=== PATIENT | female | born 1975 | race Two or more races ===

== ENCOUNTER → 2019-11-28 | Outpatient (CLI) | payer BC, OTHER ==
--- NOTE | 2019-11-28 17:44 | RAD ---
Examination: PELVIS W/TV History: Abnormal uterine bleeding Comparison/Correlation: None Findings: Transabdominal and transvaginal pelvic ultrasound exam was performed. Transvaginal technique was utilized to better assess the adnexal structures. Uterus measures 9.2 cm x 6.5 cm 4.6 cm. Myometrium is heterogeneously hypoechoic. Multiple fibroids are present involving the myometrium with the largest measuring up to 2.9 cm diameter at the posterior uterine body. Endometrial thickness measures up to 0.95 cm. Nabothian cysts involve the uterine cervix. Right ovary is not identified. Left ovary measures up to 2.8 cm x 2.2 cm x 1.2 cm. No pelvic free fluid. Impression: Fibroid uterus. Electronically signed by: Sam Maddox MD (11/28/2019 5:41 PM) [facility]
== END | disposition home or self-care (01) ==
LOC: US 10:05
PROVIDERS: ATTEND Obstetrics & Gynecology
DX: N88.8 Other specified noninflammatory disorders of cervix uteri (principal); D25.9 Leiomyoma of uterus, unspecified; N92.0 Excessive and frequent menstruation with regular cycle
CPT/HCPCS: 76830; 76856

== ENCOUNTER → 2020-04-19 | Outpatient (CLI) | payer BC, OTHER | END | disposition home or self-care (01) | LOC: LAB 13:26 | PROVIDERS: ATTEND Obstetrics & Gynecology | DX: Z01.818 Encounter for other preprocedural examination (principal); U07.1 COVID-19 | CPT/HCPCS: C9803-CS; U0003-CS ==

== ENCOUNTER → 2020-05-18 | Outpatient (CLI) | payer BC, OTHER | END | disposition home or self-care (01) | LOC: LAB 15:03 | PROVIDERS: ATTEND Obstetrics & Gynecology | DX: Z11.59 Encounter for screening for other viral diseases (principal) | CPT/HCPCS: U0003-CS ==

== ENCOUNTER 2020-05-24 06:02 | Observation (INO) | payer BC, OTHER ==
[~2020-05-24] VITALS: Ht 154.9 cm; Wt 67.0 kg
[2020-05-24] VITALS (8 sets, daily range): BP systolic 113–134; BP diastolic 70–83
[~2020-05-24 06:02] MED LIST: BIOT10004 PO; CALC500T30 PO; LEVO112T2 PO; PANT40TA77 PO; PNV1TABL78 PO; ceFAZolin SODIUM IV Push 1 GM VIAL. IVP PRN
[2020-05-24] MEDS ORDERED: PROPOFOL 10 MG/ML (20ML) VIAL. IV ONE (06:12)
[2020-05-24] MEDS ORDERED: LIDOCAINE 2% PF 5 ML VIAL. ONE (06:12)
[2020-05-24] MEDS ORDERED: ONDANSETRON PF 4 MG/2 ML VIAL. ONE (06:13)
[2020-05-24] MEDS ORDERED: DEXAMETHASONE SOD PHOS 4 MG/ML VIAL ONE ×2 (06:13→08:01)
[2020-05-24] MEDS ORDERED: ROCURONIUM 50 MG/5 ML VIAL. ONE (06:13)
[2020-05-24] MEDS ORDERED: fentaNYL PF VIAL 100 MCG/2 ML VIAL ONE (06:14)
[2020-05-24] MEDS ORDERED: MIDAZOLAM HCL/PF 2 MG/2 ML VIAL. ONE (06:15)
[2020-05-24 06:50] LABS: BASO % 1 % (0-3); EOS # 0.1 x10^3/uL (0.0-0.7); EOS % 2 % (0-3); HEMOGLOBIN 14.1 g/dL (12.0-15.5); LYMPH # 1.8 x10^3/uL (1.0-4.8); LYMPH % 39 % (24-48); MEAN CORPUSCULAR HEMOGLOBIN 33 pg (25-35); MEAN CORPUSCULAR HGB CONC 35 g/dL (31-37); MEAN CORPUSCULAR VOLUME 94 fL (79-100); MONO # 0.2 x10^3/uL (0.0-1.1); MONO % 5 % (0-9); NEUT # 2.5 x10^3/uL (1.8-7.7); NEUT % 54 % (31-73); PLATELET COUNT 207 x10^3/uL (140-400); RED BLOOD COUNT 4.27 x10^6/uL (3.50-5.40); RED CELL DISTRIBUTION WIDTH 13.7 % (11.5-14.5); WHITE BLOOD COUNT 4.6 x10^3/uL (4.0-11.0)
[2020-05-24] MEDS ORDERED: LIDOCAINE 1%/EPI 1:100,000 20 ML VIAL. ONE (06:51)
[2020-05-24] MEDS ORDERED: INDIGOTINDISULFONATE SODIUM 40 MG/5 ML AMPUL. ONE (06:51)
[2020-05-24] MEDS ORDERED: PROCHLORPERAZINE 10 MG/2 ML VIAL. IV PRN ×2 (07:00→09:00)
[2020-05-24] MEDS ORDERED: HYDROmorphone 2 MG/ML VIAL IV PRN (07:00)
[2020-05-24] MEDS ORDERED: ONDANSETRON PF 4 MG/2 ML VIAL. IV PRN ×2 (07:00→09:00)
[2020-05-24] MEDS ORDERED: fentaNYL PF VIAL 100 MCG/2 ML VIAL IV PRN ×2 (07:00)
[2020-05-24] MEDS ORDERED: MORPHINE SULFATE 2 MG/ML VIAL. IV PRN (07:00)
[2020-05-24] MEDS ORDERED: IV RINGERS,LACTATED 1000ML 1,000 ML IV SCH (07:00)
[2020-05-24] MEDS ORDERED: SCOPOLAMINE 1.5MG PATCH. TD ONE (07:00)
[2020-05-24] MEDS ORDERED: ESTROGENS, CONJ VAGINAL CREAM 30GM TUBE. ONE (07:05)
[2020-05-24] MEDS ORDERED: SUCCINYLCHOLINE 200 MG/10 ML VIAL. ONE (07:32)
[2020-05-24] MEDS ORDERED: FAMOTIDINE 20 MG/2 ML VIAL ONE (08:12)
[2020-05-24] MEDS ORDERED: LIDOCAINE 1%/EPI 1:100,000 20 ML VIAL. INJ ONE (08:12)
[2020-05-24] MEDS ORDERED: SEVOFLURANE 61 TO 120 MINUTES. IH ONE (08:22)
[2020-05-24] MEDS ORDERED: KETOROLAC 30 MG/ML VIAL. ONE (08:22)
[2020-05-24] MEDS ORDERED: GLYCOPYRROLATE 1 MG/5 ML VIAL. ONE (08:28)
[2020-05-24] MEDS ORDERED: NEOSTIGMINE METHYLSULFATE 5 MG/5 ML SYRINGE. ONE (08:29)
--- NOTE | 2020-05-24 08:56 | PDOC ---
BRIEF OPERATIVE NOTE Date: May 24, 2020 Pre-Op Diagnosis 1. Fibroids 2. Menorrhagia 3. Dysmenorrhea 4. Anemia Post-Op Diagnosis Same Procedure Performed [facility] Surgeon Dr. Sanz Gas Appliance Servicer Stock Worker And Deliverer: Temo Anesthesia Type: General Blood Loss 75 ml Specimens Obtained cervix, uterus Findings enlarged, fibroid uterus; nml fallopian tubes and ovaries melanie. Complications none Operative Note see dictation JUWAN SANZ Jr, MD May 24, 2020 08:56
[2020-05-24] MEDS ORDERED: diphenhydrAMINE HCL 25 MG CAPSULE PO PRN (09:00)
[2020-05-24] MEDS ORDERED: ZOLPIDEM 5 MG TABLET. PO PRN (09:00)
[2020-05-24] MEDS ORDERED: KETOROLAC 30 MG/ML VIAL. IV PRN (09:00)
[2020-05-24] MEDS ORDERED: 0.9 % SODIUM CHLORIDE 10 ML DISP.SYRIN. IV PRN (09:00)
[2020-05-24] MEDS ORDERED: diphenhydrAMINE 50 MG/ML VIAL IV PRN (09:00)
[2020-05-24] MEDS ORDERED: SIMETHICONE 80 MG TAB.CHEW PO PRN (09:00)
[2020-05-24] MEDS ORDERED: CALCIUM CARBONATE 500 MG TAB.CHEW PO PRN (09:00)
[2020-05-24] MEDS ORDERED: DEXTROSE 50% 25 GM / 50ML DISP.SYRIN. IV PRN (09:00)
--- NOTE | 2020-05-24 09:07 | OP ---
DATE OF SURGERY: 05/24/2020 PREOPERATIVE DIAGNOSES: 1. Fibroids. 2. Menorrhagia. 3. Dysmenorrhea. 4. Anemia. POSTOPERATIVE DIAGNOSES: 1. Fibroids. 2. Menorrhagia. 3. Dysmenorrhea. 4. Anemia. PROCEDURE: [facility]. SURGEON: Juwan Sanz MD METALWORKING SPECIALIST: Temo. ANESTHESIA: GETA. ESTIMATED BLOOD LOSS: 75 mL COMPLICATIONS: None. FINDINGS: Enlarged fibroid uterus, normal fallopian tubes and ovaries bilaterally. SUMMARY: A 45-year-old female with long history of fibroids, menorrhagia, dysmenorrhea, and anemia, requiring hysterectomy. She was counseled on the risks, benefits and expectations of transvaginal hysterectomy and voiced clear understanding to proceed. DESCRIPTION OF PROCEDURE: The patient was taken to surgery suite and placed in dorsal lithotomy position. She was prepped with Betadine solution and draped in sterile fashion. After adequate anesthesia, weighted speculum and curved [place] placed vaginally. Anterior and posterior lip of cervix was grasped with Kenzie clamps. 1% lidocaine with epinephrine was injected in a circumferential manner. Bovie cautery was utilized to circumscribe the cervix. The vaginal mucosa was then dissected away from the lower uterine segment using blunt dissection with a moist Ray-Clau. The parametrial tissue was clamped bilaterally with curved Claire clamps, cut and suture ligated with 2-0 Vicryl suture. The posterior cul-de-sac was then entered using curved Britton scissors. The long weighted speculum was placed. Uterosacral ligaments were clamped bilaterally, cut, and suture ligated. Cardinal ligaments were clamped bilaterally, cut, and suture ligated. Anterior cul-de-sac was entered sharply using Metzenbaum scissors. Uterus was then retroverted. Coring method was performed removing large fibroids and fundus of the uterus. The uteroovarian pedicles were clamped bilaterally, cut, and suture ligated. The fallopian tubes and ovaries appeared normal bilaterally. The pedicles were all hemostatic. The remainder of the cervix and uterus were handed off for specimen. A modified Marie's culdoplasty incorporating the uterosacral ligaments bilaterally was performed. The remainder of the vaginal cuff was reapproximated using 2-0 Vicryl suture in [id number] manner. Moist vaginal packing was placed. Malhotra catheter was placed with elicited clear yellow urine. The patient tolerated the procedure well and was taken to recovery room in stable condition. Sponge and needle count correct x 3. JUWAN SNAZ MD DR: ESEQUIEL/kandis JOB#: [id number] / [id number]
[2020-05-24] MEDS: oxyCODONE/APAP 5/325 1 TAB TABLET PO PRN ×4 (10:45→23:56)
[2020-05-24] MEDS: GABAPENTIN 300 MG CAPSULE. PO SCH ×2 (15:51→21:58)
[2020-05-25] VITALS: BP 110/84
[2020-05-25] MEDS: oxyCODONE/APAP 5/325 1 TAB TABLET PO PRN ×2 (03:57→14:31)
[2020-05-25 04:00] VITALS: BP 117/77
[2020-05-25 05:03] LABS: BASO % 0 % (0-3); EOS % 0 % (0-3); HEMATOCRIT 34.5 % (36.0-47.0); HEMOGLOBIN 12.3 g/dL (12.0-15.5); LYMPH # 1.7 x10^3/uL (1.0-4.8); LYMPH % 26 % (24-48); MEAN CORPUSCULAR HEMOGLOBIN 33 pg (25-35); MEAN CORPUSCULAR HGB CONC 36 g/dL (31-37); MEAN CORPUSCULAR VOLUME 94 fL (79-100); MONO # 0.4 x10^3/uL (0.0-1.1); MONO % 6 % (0-9); NEUT # 4.6 x10^3/uL (1.8-7.7); NEUT % 68 % (31-73); PLATELET COUNT 212 x10^3/uL (140-400); RED BLOOD COUNT 3.68 x10^6/uL (3.50-5.40); RED CELL DISTRIBUTION WIDTH 13.2 % (11.5-14.5); WHITE BLOOD COUNT 6.8 x10^3/uL (4.0-11.0)
[2020-05-25] MEDS: GABAPENTIN 300 MG CAPSULE. PO SCH (05:54)
[2020-05-25 10:35] VITALS: BP 123/79
--- NOTE | 2020-05-25 13:12 | PDOC ---
SURGICAL PROGRESS NOTE Subjective Pt. feeling well. No complaints. She is tolerating regular diet, ambulating and voiding without difficulty. Vital Signs Vital Signs Date Time Temp Pulse Resp B/P (MAP) Pulse Ox O2 Delivery O2 Flow Rate FiO2 05/25/20 10:35 98.4 63 18 123/79 (94) 95 Room Air 98.4 I&O Intake and Output 05/25/20 07:00 Intake Total 1100 ml Output Total 1875 ml Balance -775 ml Intake Oral 600 ml IV Total 500 ml Output Urine Total 1800 ml Estimated Blood Loss 75 ml PATIENT HAS A TAVERAS: No General: Alert, Oriented X3, Cooperative HEENT: Atraumatic Lungs: Clear to auscultation Heart: Regular rate Abdomen: Normal bowel sounds, Soft, No tenderness Psych/Mental Status: Mental status NL Labs Laboratory Tests Test 05/24/20 06:21 05/24/20 06:30 05/25/20 04:45 Bedside Urine HCG, Qualitative Hcg negative (Negative) White Blood Count 4.6 x10^3/uL (4.0-11.0) 6.8 x10^3/uL (4.0-11.0) Red Blood Count 4.27 x10^6/uL (3.50-5.40) 3.68 x10^6/uL (3.50-5.40) Hemoglobin 14.1 g/dL (12.0-15.5) 12.3 g/dL (12.0-15.5) Hematocrit 40.0 % (36.0-47.0) 34.5 % (36.0-47.0) Mean Corpuscular Volume 94 fL (79-100) 94 fL (79-100) Mean Corpuscular Hemoglobin 33 pg (25-35) 33 pg (25-35) Mean Corpuscular Hemoglobin Concent 35 g/dL (31-37) 36 g/dL (31-37) Red Cell Distribution Width 13.7 % (11.5-14.5) 13.2 % (11.5-14.5) Platelet Count 207 x10^3/uL (140-400) 212 x10^3/uL (140-400) Neutrophils (%) (Auto) 54 % (31-73) 68 % (31-73) Lymphocytes (%) (Auto) 39 % (24-48) 26 % (24-48) Monocytes (%) (Auto) 5 % (0-9) 6 % (0-9) Eosinophils (%) (Auto) 2 % (0-3) 0 % (0-3) Basophils (%) (Auto) 1 % (0-3) 0 % (0-3) Neutrophils # (Auto) 2.5 x10^3/uL (1.8-7.7) 4.6 x10^3/uL (1.8-7.7) Lymphocytes # (Auto) 1.8 x10^3/uL (1.0-4.8) 1.7 x10^3/uL (1.0-4.8) Monocytes # (Auto) 0.2 x10^3/uL (0.0-1.1) 0.4 x10^3/uL (0.0-1.1) Eosinophils # (Auto) 0.1 x10^3/uL (0.0-0.7) 0.0 x10^3/uL (0.0-0.7) Basophils # (Auto) 0.0 x10^3/uL (0.0-0.2) 0.0 x10^3/uL (0.0-0.2) Laboratory Tests Test 05/25/20 04:45 White Blood Count 6.8 x10^3/uL (4.0-11.0) Red Blood Count 3.68 x10^6/uL (3.50-5.40) Hemoglobin 12.3 g/dL (12.0-15.5) Hematocrit 34.5 % (36.0-47.0) Mean Corpuscular Volume 94 fL (79-100) Mean Corpuscular Hemoglobin 33 pg (25-35) Mean Corpuscular Hemoglobin Concent 36 g/dL (31-37) Red Cell Distribution Width 13.2 % (11.5-14.5) Platelet Count 212 x10^3/uL (140-400) Neutrophils (%) (Auto) 68 % (31-73) Lymphocytes (%) (Auto) 26 % (24-48) Monocytes (%) (Auto) 6 % (0-9) Eosinophils (%) (Auto) 0 % (0-3) Basophils (%) (Auto) 0 % (0-3) Neutrophils # (Auto) 4.6 x10^3/uL (1.8-7.7) Lymphocytes # (Auto) 1.7 x10^3/uL (1.0-4.8) Monocytes # (Auto) 0.4 x10^3/uL (0.0-1.1) Eosinophils # (Auto) 0.0 x10^3/uL (0.0-0.7) Basophils # (Auto) 0.0 x10^3/uL (0.0-0.2) Assessment/Plan A: POD#1 s/p [facility] P: D/c home. F/u in 1 week. Justicifation of Admission Dx: Justifications for Admission: Justification of Admission Dx: Yes JUWAN ELI Jr, MD May 25, 2020 13:12
[2020-05-25] MEDS ORDERED: GABA300C18 PO (13:14)
[2020-05-25] MEDS ORDERED: OXYC1TAB15 PO (13:14)
--- NOTE | 2020-05-25 13:14 | DISCH ---
DISCHARGE INSTRUCTIONS Condition on Discharge Condition on Discharge: Stable Activity After Discharge Activity Instructions for Disc: Activity as tolerated Lifting Instructions after Dis: No heavy lifting Driving Instructions after Dis: Do not drive today Diet after Discharge Diet Texture: Regular Contacting the DRElin after DC Call your doctor for: Concerns you may have Follow-Up Follow up with: Dr. Sanz in 1 week JUWAN SANZ Jr, MD May 25, 2020 13:14
--- NOTE | 2020-05-25 15:02 | NUR ---
Discharge Discharge instructions given to patient at this time, no questions or concerns noted. To follow up in [address] Sanz. Patient left per wheelchair with all her belongings.
--- NOTE | 2020-05-25 18:06 | PATHOLOGY ---
[facility] Accession Number: [id number] . 01 Material submitted: . uterus - UTERUS AND CERVIX . 01 Clinical history: . Abnormal uterine bleeding . 02 Diagnosis: Uterus, total vaginal hysterectomy: - Chronic cervicitis. - Squamous metaplasia of uterine cervix; negative for dysplasia and malignancy. - Secretory pattern of endometrial glands and stroma; negative for hyperplasia, atypia, and malignancy. - Adenomyosis. - Leiomyoma; negative for malignancy. . (SUZANNE:bao; 05/25/2020) [facility] 05/25/2020 1732 Local . 02 Electronically signed: . Martha Nur MD, Pathologist NPI- [id number] . 01 Gross description: . The specimen is received in formalin labeled "Amairani Rosario, uterus and cervix". Received is a uterus with attached cervix, which is received with the fundus from the remainder of the specimen, measuring 8.8 x 5.5 x 4.5 cm upon reconstruction, and having an aggregate weight of 128 g. The uterine serosa is pink-jose and smooth in appearance. The 1.9 cm cervical os is surrounded by pink-jose, granular to pale jose, smooth ectocervical mucosa. The uterus is oriented using the peritoneal reflection and the anterior paracervical margin is inked black. The specimen is opened laterally to reveal a pink-jose endocervical canal measuring 3.2 cm in length. The endometrial cavity is triangular measuring 5.1 cm in length by 3.1 cm in width. The endometrium is pale jose, glistening in appearance and measures 0.1 cm in thickness. Serial sectioning reveals a jose-pink, trabeculated myometrium measuring up to 2.5 cm in thickness and a single intramural fibroid measuring 0.7 cm in maximum dimensions. The specimen is committed account maintenance representative as follows: . A1 12:00 cervix A2 6:00 cervix A3 anterior endomyometrium A4 posterior endomyometrium A5 account maintenance representative section of fibroid. (CAA; 05/24/2020) [facility] 05/24/2020 1653 Local . 02 Pathologist provided ICD-10: N72, N87.9, N80.0, D25.9 . 02 CPT . 636931 Specimen Comment: A courtesy copy of this report has been sent to [phone], [phone]- Specimen Comment: [id number], Specimen Comment: Report sent to Specimen Comment: Report sent to ,DR JI / DR SANDERSON [facility]formed at: [facility] [address] [id number] MD Champ Riley MD Phone: [phone] Performed at: 02 [facility] [address] [place], [place] [id number] MD Sean Leon MD Phone: [phone]
== END 2020-05-25 15:16 | disposition home or self-care (01) ==
LOC: SURG 06:02 → 3 NORTH 09:41
PROVIDERS: ADMIT Obstetrics & Gynecology; ATTEND Obstetrics & Gynecology
DX: D25.9 Leiomyoma of uterus, unspecified (principal); N92.0 Excessive and frequent menstruation with regular cycle; N94.6 Dysmenorrhea, unspecified; D64.9 Anemia, unspecified
CPT/HCPCS: 36415; 58260; 81025; 85025; 86850; 86900; 86901; 96374; G0378; G0379; J0330; J0690; J0780; J1100; J1885; J2250; J2405; J2704; J2710; J3010; J3490